=== PATIENT | female | born 1965 | race Asian ===

== ENCOUNTER 2022-01-14 09:10 | Inpatient (IN) | payer MEDICAID ==
[2022-01-14] VITALS (24 sets, daily range): BP systolic 61–105; BP diastolic 37–63
[~2022-01-14] VITALS: Ht 157.5 cm; Wt 65.0 kg
[2022-01-14 09:39] LABS: HEMATOCRIT 38.9 % (37.0-47.0); HEMOGLOBIN 13.3 g/dl (12.0-16.0); IMMATURE GRANULOCYTES 0.1 % (0.0-5.0); MEAN CELL VOLUME 83.3 fL CALC (80.0-100.0); MEAN CORPUSCULAR HGB 28.5 pG CALC (26.0-32.0); MEAN CORPUSCULAR HGB CONC 34.2 g/dL CAL (32.0-36.0); NEUT# 11.2 thou/uL (2.00-7.15); RED BLOOD COUNT 4.67 mill/uL (4.20-5.60); RED CELL DISTRI WIDTH 12.2 % (11.5-15.5)
[2022-01-14 09:58] LABS: ALBUMIN 4.8 g/dL (3.2-5.0); ALKALINE PHOSPHATASE 102 u/l (38-126); ANION GAP 14 (6-22 (CALC)); BILIRUBIN, TOTAL 1.3 mg/dL (0.0-1.4); BUN 22 mg/dL (7-17); BUN/CREATININE RATIO 37 (12-20 (CALC)); CARBON DIOXIDE 23 mmol/l (22-30); CHLORIDE 101 mmol/l (95-108); CPK 142 u/l (30-165); CREATININE 0.6 mg/dL (0.5-1.0); GFR FOR AFR.AMER. > 60 ML/MIN (>=60 (CALC)); GFR OTHER RACES > 60 ML/MIN (>=60 (CALC)); LIPASE 168 u/l (23-300); MAGNESIUM 2.4 mg/dL (1.6-2.3); POTASSIUM 4.2 mmol/l (3.5-5.1); SGOT/AST 49 u/l (14-36); SODIUM 134 mmol/l (137-146); TOTAL PROTEIN 8.4 g/dL (6.3-8.2)
[2022-01-15] VITALS (86 sets, daily range): BP systolic 88–139; BP diastolic 50–83
[2022-01-15 05:20] LABS: URINE BILIRUBIN - DIPSTICK NEGATIVE (NEGATIVE); URINE BLOOD DIPSTICK MODERATE (NEGATIVE); URINE COLOR YELLOW; URINE GLUCOSE - DIPSTICK NEGATIVE (NEGATIVE); URINE KETONE TRACE mg/dL (NEGATIVE); URINE LEUK ESTERASE NEGATIVE (NEGATIVE); URINE PH 5.5 (4.5-8.0); URINE PROTEIN - DIPSTICK NEGATIVE (NEG-TRACE); URINE SPECIFIC GRAVITY >=1.030; URINE UROBILINOGEN - DIPSTICK 0.2 E.U./dL (0.2)
[2022-01-15 05:22] LABS: URINE NITRITE - DIPSTICK NEGATIVE (Negative)
[2022-01-15 05:34] LABS: URINE CALCIUM OXALATE CRYSTALS FEW lpf
[2022-01-15 05:35] LABS: URINE SQUAMOUS EPITHELIAL CELL FEW EPI/hpf (0-FEW)
[2022-01-15 05:51] LABS: HEMATOCRIT 35.9 % (37.0-47.0); HEMOGLOBIN 12.2 g/dl (12.0-16.0); IMMATURE GRANULOCYTES 0.2 % (0.0-5.0); MEAN CELL VOLUME 85.5 fL CALC (80.0-100.0); NEUT# 4.63 thou/uL (2.00-7.15); RED BLOOD COUNT 4.2 mill/uL (4.20-5.60); RED CELL DISTRI WIDTH 12.8 % (11.5-15.5)
[2022-01-15 06:08] LABS: ANION GAP 9 (6-22 (CALC)); BUN 26 mg/dL (7-17); BUN/CREATININE RATIO 38 (12-20 (CALC)); CARBON DIOXIDE 19 mmol/l (22-30); CHLORIDE 110 mmol/l (95-108); CREATININE 0.7 mg/dL (0.5-1.0); GFR FOR AFR.AMER. > 60 ML/MIN (>=60 (CALC)); GFR OTHER RACES > 60 ML/MIN (>=60 (CALC)); POTASSIUM 4.1 mmol/l (3.5-5.1); SODIUM 134 mmol/l (137-146)
[2022-01-16] VITALS (104 sets, daily range): BP systolic 83–116; BP diastolic 46–69
[2022-01-16 05:46] LABS: HEMATOCRIT 33.2 % (37.0-47.0); HEMOGLOBIN 10.9 g/dl (12.0-16.0); IMMATURE GRANULOCYTES 0.3 % (0.0-5.0); MEAN CORPUSCULAR HGB 28.2 pG CALC (26.0-32.0); MEAN CORPUSCULAR HGB CONC 32.8 g/dL CAL (32.0-36.0); NEUT# 5.23 thou/uL (2.00-7.15); RED BLOOD COUNT 3.86 mill/uL (4.20-5.60); RED CELL DISTRI WIDTH 13.1 % (11.5-15.5)
[2022-01-16 06:19] LABS: ALKALINE PHOSPHATASE 88 u/l (38-126); ANION GAP 8 (6-22 (CALC)); BILIRUBIN, TOTAL 1.2 mg/dL (0.0-1.4); BUN 16 mg/dL (7-17); BUN/CREATININE RATIO 22 (12-20 (CALC)); CARBON DIOXIDE 20 mmol/l (22-30); CHLORIDE 111 mmol/l (95-108); CREATININE 0.7 mg/dL (0.5-1.0); GFR FOR AFR.AMER. > 60 ML/MIN (>=60 (CALC)); GFR OTHER RACES > 60 ML/MIN (>=60 (CALC)); POTASSIUM 3.9 mmol/l (3.5-5.1); SGOT/AST 32 u/l (14-36); SODIUM 135 mmol/l (137-146)
[2022-01-16 06:21] LABS: ALBUMIN 2.4 g/dL (3.2-5.0)
[2022-01-17] VITALS (23 sets, daily range): BP systolic 84–124; BP diastolic 51–68
[2022-01-17 05:33] LABS: HEMOGLOBIN 9.6 g/dl (12.0-16.0); MEAN CELL VOLUME 86.3 fL CALC (80.0-100.0); MEAN CORPUSCULAR HGB 28.6 pG CALC (26.0-32.0); MEAN CORPUSCULAR HGB CONC 33.1 g/dL CAL (32.0-36.0); RED BLOOD COUNT 3.36 mill/uL (4.20-5.60); RED CELL DISTRI WIDTH 12.9 % (11.5-15.5)
[2022-01-17 05:54] LABS: ALKALINE PHOSPHATASE 65 u/l (38-126); ANION GAP 10 (6-22 (CALC)); BUN 13 mg/dL (7-17); BUN/CREATININE RATIO 20 (12-20 (CALC)); CARBON DIOXIDE 17 mmol/l (22-30); CHLORIDE 112 mmol/l (95-108); CREATININE 0.7 mg/dL (0.5-1.0); GFR FOR AFR.AMER. > 60 ML/MIN (>=60 (CALC)); GFR OTHER RACES > 60 ML/MIN (>=60 (CALC)); MAGNESIUM 1.9 mg/dL (1.6-2.3); POTASSIUM 3.4 mmol/l (3.5-5.1); SGOT/AST 27 u/l (14-36); SODIUM 136 mmol/l (137-146); TOTAL PROTEIN 4.2 g/dL (6.3-8.2)
[2022-01-17 06:07] LABS: BILIRUBIN, TOTAL 0.7 mg/dL (0.0-1.4)
[2022-01-18] VITALS (8 sets, daily range): BP systolic 105–126; BP diastolic 59–75
[2022-01-18 06:28] LABS: HEMATOCRIT 30.7 % (37.0-47.0); HEMOGLOBIN 10.3 g/dl (12.0-16.0); MEAN CELL VOLUME 85.5 fL CALC (80.0-100.0); MEAN CORPUSCULAR HGB 28.7 pG CALC (26.0-32.0); MEAN CORPUSCULAR HGB CONC 33.6 g/dL CAL (32.0-36.0); RED BLOOD COUNT 3.59 mill/uL (4.20-5.60); RED CELL DISTRI WIDTH 12.9 % (11.5-15.5)
[2022-01-18 06:55] LABS: BUN 11 mg/dL (7-17); BUN/CREATININE RATIO 17 (12-20 (CALC)); CHLORIDE 114 mmol/l (95-108); CREATININE 0.7 mg/dL (0.5-1.0); GFR FOR AFR.AMER. > 60 ML/MIN (>=60 (CALC)); GFR OTHER RACES > 60 ML/MIN (>=60 (CALC)); MAGNESIUM 1.7 mg/dL (1.6-2.3); POTASSIUM 3.4 mmol/l (3.5-5.1); SODIUM 136 mmol/l (137-146)
[2022-01-18 06:56] LABS: ANION GAP 12 (6-22 (CALC)); CARBON DIOXIDE 13 mmol/l (22-30)
[2022-01-19] VITALS (13 sets, daily range): BP systolic 96–151; BP diastolic 53–77
[2022-01-19 04:43] LABS: HEMATOCRIT 26.5 % (37.0-47.0); HEMOGLOBIN 9.4 g/dl (12.0-16.0); MEAN CELL VOLUME 80.8 fL CALC (80.0-100.0); MEAN CORPUSCULAR HGB 28.7 pG CALC (26.0-32.0); MEAN CORPUSCULAR HGB CONC 35.5 g/dL CAL (32.0-36.0); RED BLOOD COUNT 3.28 mill/uL (4.20-5.60); RED CELL DISTRI WIDTH 12.6 % (11.5-15.5)
[2022-01-19 09:48] LABS: ALBUMIN 2.2 g/dL (3.2-5.0); ALKALINE PHOSPHATASE 48 u/l (38-126); BUN 5 mg/dL (7-17); BUN/CREATININE RATIO 8 (12-20 (CALC)); CHLORIDE 107 mmol/l (95-108); CREATININE 0.6 mg/dL (0.5-1.0); GFR FOR AFR.AMER. > 60 ML/MIN (>=60 (CALC)); GFR OTHER RACES > 60 ML/MIN (>=60 (CALC)); MAGNESIUM 1.5 mg/dL (1.6-2.3); POTASSIUM 3.4 mmol/l (3.5-5.1); SGOT/AST 28 u/l (14-36); SODIUM 132 mmol/l (137-146); TOTAL PROTEIN 4.8 g/dL (6.3-8.2)
[2022-01-19 09:49] LABS: ANION GAP 6 (6-22 (CALC)); BILIRUBIN, TOTAL 0.4 mg/dL (0.0-1.4); CARBON DIOXIDE 22 mmol/l (22-30)
[2022-01-19 12:33] LABS: C. DIFFICILE TOXIN A&B NEGATIVE (NEGATIVE)
[2022-01-20] VITALS (7 sets, daily range): BP systolic 105–124; BP diastolic 58–70
[2022-01-20 04:38] LABS: HEMOGLOBIN 10.3 g/dl (12.0-16.0); IMMATURE GRANULOCYTES 1.5 % (0.0-5.0); MEAN CELL VOLUME 83.8 fL CALC (80.0-100.0); MEAN CORPUSCULAR HGB 28.8 pG CALC (26.0-32.0); MEAN CORPUSCULAR HGB CONC 34.3 g/dL CAL (32.0-36.0); NEUT# 4.77 thou/uL (2.00-7.15); RED BLOOD COUNT 3.58 mill/uL (4.20-5.60); RED CELL DISTRI WIDTH 12.8 % (11.5-15.5)
[2022-01-20 04:54] LABS: ALKALINE PHOSPHATASE 63 u/l (38-126); BILIRUBIN, TOTAL 0.4 mg/dL (0.0-1.4); CHLORIDE 101 mmol/l (95-108); CREATININE 0.6 mg/dL (0.5-1.0); GFR FOR AFR.AMER. > 60 ML/MIN (>=60 (CALC)); GFR OTHER RACES > 60 ML/MIN (>=60 (CALC)); LIPASE 803 u/l (23-300); POTASSIUM 3.3 mmol/l (3.5-5.1); SGOT/AST 34 u/l (14-36); SODIUM 135 mmol/l (137-146); TOTAL PROTEIN 5.7 g/dL (6.3-8.2)
[2022-01-20 04:56] LABS: ALBUMIN 2.8 g/dL (3.2-5.0); ANION GAP 8 (6-22 (CALC)); CARBON DIOXIDE 29 mmol/l (22-30)
[2022-01-20 04:57] LABS: BUN 2 mg/dL (7-17); BUN/CREATININE RATIO 3 (12-20 (CALC))
[2022-01-20 05:38] LABS: C-REACTIVE PROTEIN 12.4 mg/dL (0-0.9)
[2022-01-21] VITALS (7 sets, daily range): BP systolic 108–133; BP diastolic 63–74
[2022-01-21 06:33] LABS: HEMATOCRIT 28.7 % (37.0-47.0); HEMOGLOBIN 9.6 g/dl (12.0-16.0); MEAN CELL VOLUME 83.9 fL CALC (80.0-100.0); MEAN CORPUSCULAR HGB 28.1 pG CALC (26.0-32.0); MEAN CORPUSCULAR HGB CONC 33.4 g/dL CAL (32.0-36.0); RED BLOOD COUNT 3.42 mill/uL (4.20-5.60); RED CELL DISTRI WIDTH 12.6 % (11.5-15.5)
[2022-01-21 06:48] LABS: ALBUMIN 2.4 g/dL (3.2-5.0); ALKALINE PHOSPHATASE 56 u/l (38-126); ANION GAP 9 (6-22 (CALC)); CARBON DIOXIDE 30 mmol/l (22-30); CHLORIDE 101 mmol/l (95-108); CREATININE 0.5 mg/dL (0.5-1.0); GFR FOR AFR.AMER. > 60 ML/MIN (>=60 (CALC)); GFR OTHER RACES > 60 ML/MIN (>=60 (CALC)); MAGNESIUM 1.9 mg/dL (1.6-2.3); POTASSIUM 3.4 mmol/l (3.5-5.1); SODIUM 136 mmol/l (137-146); TOTAL PROTEIN 4.8 g/dL (6.3-8.2)
[2022-01-21 07:00] LABS: BILIRUBIN, TOTAL 0.2 mg/dL (0.0-1.4); SGOT/AST 68 u/l (14-36)
[2022-01-21 07:01] LABS: BUN 2 mg/dL (7-17); BUN/CREATININE RATIO 4 (12-20 (CALC))
[2022-01-22 00:36] VITALS: BP 109/63
[2022-01-22 04:05] VITALS: BP 119/69
[2022-01-22 04:52] LABS: HEMATOCRIT 29.3 % (37.0-47.0); HEMOGLOBIN 9.8 g/dl (12.0-16.0); IMMATURE GRANULOCYTES 0.6 % (0.0-5.0); MEAN CORPUSCULAR HGB 28.1 pG CALC (26.0-32.0); MEAN CORPUSCULAR HGB CONC 33.4 g/dL CAL (32.0-36.0); NEUT# 4.16 thou/uL (2.00-7.15); RED BLOOD COUNT 3.49 mill/uL (4.20-5.60); RED CELL DISTRI WIDTH 12.6 % (11.5-15.5)
[2022-01-22 05:27] LABS: ALBUMIN 2.5 g/dL (3.2-5.0); ALKALINE PHOSPHATASE 52 u/l (38-126); AMYLASE 178 u/l (30-110); ANION GAP 11 (6-22 (CALC)); BUN 3 mg/dL (7-17); BUN/CREATININE RATIO 7 (12-20 (CALC)); CARBON DIOXIDE 27 mmol/l (22-30); CHLORIDE 103 mmol/l (95-108); CREATININE 0.5 mg/dL (0.5-1.0); GFR FOR AFR.AMER. > 60 ML/MIN (>=60 (CALC)); GFR OTHER RACES > 60 ML/MIN (>=60 (CALC)); LIPASE 1185 u/l (23-300); POTASSIUM 3.8 mmol/l (3.5-5.1); SGOT/AST 51 u/l (14-36); SODIUM 138 mmol/l (137-146)
[2022-01-22 05:41] LABS: BILIRUBIN, TOTAL 0.3 mg/dL (0.0-1.4)
[2022-01-22 07:32] VITALS: BP 115/67
[2022-01-22 11:08] VITALS: BP 94/52
[2022-01-22 16:50] VITALS: BP 101/55
[2022-01-22 19:42] VITALS: BP 114/60
[2022-01-23] VITALS (7 sets, daily range): BP systolic 92–117; BP diastolic 49–69
[2022-01-23 06:18] LABS: HEMATOCRIT 30.6 % (37.0-47.0); HEMOGLOBIN 10.5 g/dl (12.0-16.0); MEAN CELL VOLUME 83.4 fL CALC (80.0-100.0); MEAN CORPUSCULAR HGB 28.6 pG CALC (26.0-32.0); MEAN CORPUSCULAR HGB CONC 34.3 g/dL CAL (32.0-36.0); RED BLOOD COUNT 3.67 mill/uL (4.20-5.60); RED CELL DISTRI WIDTH 12.7 % (11.5-15.5)
[2022-01-23 06:26] LABS: ALBUMIN 2.7 g/dL (3.2-5.0); ALKALINE PHOSPHATASE 55 u/l (38-126); AMYLASE 156 u/l (30-110); ANION GAP 12 (6-22 (CALC)); BILIRUBIN, TOTAL 0.2 mg/dL (0.0-1.4); BUN 3 mg/dL (7-17); BUN/CREATININE RATIO 6 (12-20 (CALC)); CARBON DIOXIDE 24 mmol/l (22-30); CHLORIDE 99 mmol/l (95-108); CREATININE 0.5 mg/dL (0.5-1.0); GFR FOR AFR.AMER. > 60 ML/MIN (>=60 (CALC)); GFR OTHER RACES > 60 ML/MIN (>=60 (CALC)); LIPASE 968 u/l (23-300); MAGNESIUM 1.8 mg/dL (1.6-2.3); SGOT/AST 38 u/l (14-36); TOTAL PROTEIN 5.3 g/dL (6.3-8.2)
[2022-01-23 06:45] LABS: SODIUM 131 mmol/l (137-146)
[2022-01-24 00:14] VITALS: BP 105/58
[2022-01-24 03:59] VITALS: BP 99/51
[2022-01-24 05:41] LABS: HEMATOCRIT 31.4 % (37.0-47.0); HEMOGLOBIN 10.6 g/dl (12.0-16.0); MEAN CELL VOLUME 84.4 fL CALC (80.0-100.0); MEAN CORPUSCULAR HGB 28.5 pG CALC (26.0-32.0); MEAN CORPUSCULAR HGB CONC 33.8 g/dL CAL (32.0-36.0); RED BLOOD COUNT 3.72 mill/uL (4.20-5.60); RED CELL DISTRI WIDTH 12.9 % (11.5-15.5)
[2022-01-24 06:25] LABS: ALBUMIN 2.4 g/dL (3.2-5.0); ALKALINE PHOSPHATASE 51 u/l (38-126); ANION GAP 12 (6-22 (CALC)); BILIRUBIN, TOTAL 0.2 mg/dL (0.0-1.4); BUN 6 mg/dL (7-17); BUN/CREATININE RATIO 11 (12-20 (CALC)); CARBON DIOXIDE 24 mmol/l (22-30); CHLORIDE 101 mmol/l (95-108); CREATININE 0.6 mg/dL (0.5-1.0); GFR FOR AFR.AMER. > 60 ML/MIN (>=60 (CALC)); GFR OTHER RACES > 60 ML/MIN (>=60 (CALC)); LIPASE 1178 u/l (23-300); MAGNESIUM 1.9 mg/dL (1.6-2.3); POTASSIUM 3.8 mmol/l (3.5-5.1); SODIUM 133 mmol/l (137-146); TOTAL PROTEIN 4.8 g/dL (6.3-8.2)
[2022-01-24 06:27] LABS: SGOT/AST 82 u/l (14-36)
[2022-01-24 06:51] VITALS: BP 99/57
[2022-01-24 15:33] VITALS: BP 102/59
[2022-01-24 19:24] VITALS: BP 102/52
[2022-01-25] VITALS (9 sets, daily range): BP systolic 82–97; BP diastolic 40–59
[2022-01-25 05:00] LABS: ALBUMIN 2.2 g/dL (3.2-5.0); ALKALINE PHOSPHATASE 52 u/l (38-126); ANION GAP 10 (6-22 (CALC)); BUN 5 mg/dL (7-17); BUN/CREATININE RATIO 8 (12-20 (CALC)); CARBON DIOXIDE 24 mmol/l (22-30); CHLORIDE 104 mmol/l (95-108); CREATININE 0.5 mg/dL (0.5-1.0); GFR FOR AFR.AMER. > 60 ML/MIN (>=60 (CALC)); GFR OTHER RACES > 60 ML/MIN (>=60 (CALC)); LIPASE 1251 u/l (23-300); SGOT/AST 131 u/l (14-36); SODIUM 133 mmol/l (137-146); TOTAL PROTEIN 4.6 g/dL (6.3-8.2)
[2022-01-25 05:02] LABS: HEMATOCRIT 29.7 % (37.0-47.0); IMMATURE GRANULOCYTES 0.2 % (0.0-5.0); MEAN CELL VOLUME 84.9 fL CALC (80.0-100.0); MEAN CORPUSCULAR HGB 28.6 pG CALC (26.0-32.0); MEAN CORPUSCULAR HGB CONC 33.7 g/dL CAL (32.0-36.0); NEUT# 3.13 thou/uL (2.00-7.15); RED BLOOD COUNT 3.5 mill/uL (4.20-5.60)
[2022-01-26] VITALS (15 sets, daily range): BP systolic 84–118; BP diastolic 45–63
[2022-01-26 05:28] LABS: HEMATOCRIT 30.2 % (37.0-47.0); HEMOGLOBIN 9.9 g/dl (12.0-16.0); IMMATURE GRANULOCYTES 0.2 % (0.0-5.0); MEAN CELL VOLUME 85.6 fL CALC (80.0-100.0); MEAN CORPUSCULAR HGB CONC 32.8 g/dL CAL (32.0-36.0); NEUT# 3.24 thou/uL (2.00-7.15); RED BLOOD COUNT 3.53 mill/uL (4.20-5.60); RED CELL DISTRI WIDTH 13.1 % (11.5-15.5)
[2022-01-26 05:33] LABS: ALBUMIN 2.5 g/dL (3.2-5.0); ALKALINE PHOSPHATASE 56 u/l (38-126); BUN < 2 mg/dL (7-17); CHLORIDE 104 mmol/l (95-108); CREATININE 0.6 mg/dL (0.5-1.0); GFR FOR AFR.AMER. > 60 ML/MIN (>=60 (CALC)); GFR OTHER RACES > 60 ML/MIN (>=60 (CALC)); LIPASE 692 u/l (23-300); POTASSIUM 3.9 mmol/l (3.5-5.1); SGOT/AST 88 u/l (14-36); SODIUM 137 mmol/l (137-146); TOTAL PROTEIN 5.3 g/dL (6.3-8.2)
[2022-01-26 05:57] LABS: ANION GAP 8 (6-22 (CALC)); BILIRUBIN, TOTAL 0.2 mg/dL (0.0-1.4); CARBON DIOXIDE 29 mmol/l (22-30)
[2022-01-27] VITALS (20 sets, daily range): BP systolic 77–109; BP diastolic 41–64
[2022-01-27 04:50] LABS: HEMATOCRIT 27.4 % (37.0-47.0); HEMOGLOBIN 9.2 g/dl (12.0-16.0); IMMATURE GRANULOCYTES 0.7 % (0.0-5.0); MEAN CELL VOLUME 85.4 fL CALC (80.0-100.0); MEAN CORPUSCULAR HGB 28.7 pG CALC (26.0-32.0); MEAN CORPUSCULAR HGB CONC 33.6 g/dL CAL (32.0-36.0); NEUT# 3.23 thou/uL (2.00-7.15); RED BLOOD COUNT 3.21 mill/uL (4.20-5.60); RED CELL DISTRI WIDTH 13.1 % (11.5-15.5)
[2022-01-27 05:09] LABS: ANION GAP 7 (6-22 (CALC)); BUN < 2 mg/dL (7-17); CARBON DIOXIDE 29 mmol/l (22-30); CHLORIDE 102 mmol/l (95-108); CREATININE 0.5 mg/dL (0.5-1.0); GFR FOR AFR.AMER. > 60 ML/MIN (>=60 (CALC)); GFR OTHER RACES > 60 ML/MIN (>=60 (CALC)); POTASSIUM 3.8 mmol/l (3.5-5.1); SODIUM 134 mmol/l (137-146)
[2022-01-28] VITALS (7 sets, daily range): BP systolic 93–106; BP diastolic 53–62
[2022-01-28 06:42] LABS: HEMATOCRIT 27.2 % (37.0-47.0); HEMOGLOBIN 8.9 g/dl (12.0-16.0); IMMATURE GRANULOCYTES 0.5 % (0.0-5.0); MEAN CELL VOLUME 86.3 fL CALC (80.0-100.0); MEAN CORPUSCULAR HGB 28.3 pG CALC (26.0-32.0); MEAN CORPUSCULAR HGB CONC 32.7 g/dL CAL (32.0-36.0); NEUT# 2.42 thou/uL (2.00-7.15); RED BLOOD COUNT 3.15 mill/uL (4.20-5.60); RED CELL DISTRI WIDTH 13.2 % (11.5-15.5)
[2022-01-28 06:57] LABS: ALBUMIN 2.2 g/dL (3.2-5.0); ALKALINE PHOSPHATASE 52 u/l (38-126); ANION GAP 6 (6-22 (CALC)); BILIRUBIN, TOTAL 0.2 mg/dL (0.0-1.4); BUN < 2 mg/dL (7-17); CARBON DIOXIDE 27 mmol/l (22-30); CHLORIDE 106 mmol/l (95-108); CREATININE 0.5 mg/dL (0.5-1.0); GFR FOR AFR.AMER. > 60 ML/MIN (>=60 (CALC)); GFR OTHER RACES > 60 ML/MIN (>=60 (CALC)); LIPASE 528 u/l (23-300); POTASSIUM 3.9 mmol/l (3.5-5.1); SGOT/AST 45 u/l (14-36); SODIUM 135 mmol/l (137-146); TOTAL PROTEIN 4.9 g/dL (6.3-8.2)
[2022-01-29 00:15] VITALS: BP 117/68
[2022-01-29 03:59] VITALS: BP 102/57
[2022-01-29 05:39] LABS: HEMATOCRIT 25.7 % (37.0-47.0); HEMOGLOBIN 8.4 g/dl (12.0-16.0); IMMATURE GRANULOCYTES 0.6 % (0.0-5.0); MEAN CELL VOLUME 86.5 fL CALC (80.0-100.0); MEAN CORPUSCULAR HGB 28.3 pG CALC (26.0-32.0); MEAN CORPUSCULAR HGB CONC 32.7 g/dL CAL (32.0-36.0); NEUT# 1.74 thou/uL (2.00-7.15); RED BLOOD COUNT 2.97 mill/uL (4.20-5.60); RED CELL DISTRI WIDTH 13.2 % (11.5-15.5)
[2022-01-29 05:58] LABS: ANION GAP 8 (6-22 (CALC)); BUN < 2 mg/dL (7-17); CARBON DIOXIDE 29 mmol/l (22-30); CHLORIDE 103 mmol/l (95-108); CREATININE 0.5 mg/dL (0.5-1.0); GFR FOR AFR.AMER. > 60 ML/MIN (>=60 (CALC)); GFR OTHER RACES > 60 ML/MIN (>=60 (CALC)); MAGNESIUM 1.8 mg/dL (1.6-2.3); POTASSIUM 3.7 mmol/l (3.5-5.1); SODIUM 136 mmol/l (137-146)
[2022-01-29 06:02] VITALS: BP 112/66
[2022-01-29 10:22] VITALS: BP 104/61
[2022-01-29 16:02] VITALS: BP 91/58
[2022-01-29 19:09] VITALS: BP 96/53
[2022-01-30] VITALS (8 sets, daily range): BP systolic 90–115; BP diastolic 48–66
[2022-01-30 05:07] LABS: HEMOGLOBIN 8.3 g/dl (12.0-16.0); MEAN CELL VOLUME 86.5 fL CALC (80.0-100.0); MEAN CORPUSCULAR HGB 28.7 pG CALC (26.0-32.0); MEAN CORPUSCULAR HGB CONC 33.2 g/dL CAL (32.0-36.0); RED BLOOD COUNT 2.89 mill/uL (4.20-5.60); RED CELL DISTRI WIDTH 13.1 % (11.5-15.5)
[2022-01-30 05:22] LABS: ALBUMIN 2.4 g/dL (3.2-5.0); ALKALINE PHOSPHATASE 59 u/l (38-126); ANION GAP 7 (6-22 (CALC)); BILIRUBIN, TOTAL 0.2 mg/dL (0.0-1.4); BUN < 2 mg/dL (7-17); CARBON DIOXIDE 28 mmol/l (22-30); CHLORIDE 103 mmol/l (95-108); CREATININE 0.5 mg/dL (0.5-1.0); GFR FOR AFR.AMER. > 60 ML/MIN (>=60 (CALC)); GFR OTHER RACES > 60 ML/MIN (>=60 (CALC)); POTASSIUM 3.7 mmol/l (3.5-5.1); SGOT/AST 38 u/l (14-36); SODIUM 135 mmol/l (137-146); TOTAL PROTEIN 5.2 g/dL (6.3-8.2)
[2022-01-31] VITALS (10 sets, daily range): BP systolic 87–104; BP diastolic 51–62
[2022-01-31 05:15] LABS: HEMATOCRIT 25.5 % (37.0-47.0); HEMOGLOBIN 8.2 g/dl (12.0-16.0); MEAN CELL VOLUME 85.9 fL CALC (80.0-100.0); MEAN CORPUSCULAR HGB 27.6 pG CALC (26.0-32.0); MEAN CORPUSCULAR HGB CONC 32.2 g/dL CAL (32.0-36.0); RED BLOOD COUNT 2.97 mill/uL (4.20-5.60)
[2022-01-31 05:37] LABS: ANION GAP 8 (6-22 (CALC)); BUN < 2 mg/dL (7-17); CARBON DIOXIDE 29 mmol/l (22-30); CHLORIDE 101 mmol/l (95-108); CREATININE 0.5 mg/dL (0.5-1.0); GFR FOR AFR.AMER. > 60 ML/MIN (>=60 (CALC)); GFR OTHER RACES > 60 ML/MIN (>=60 (CALC)); POTASSIUM 3.7 mmol/l (3.5-5.1); SODIUM 134 mmol/l (137-146)
[2022-02-01 00:11] VITALS: BP 87/52
[2022-02-01 04:03] VITALS: BP 90/54
[2022-02-01 06:15] VITALS: BP 88/51
[2022-02-01 06:15] LABS: HEMATOCRIT 28.1 % (37.0-47.0); HEMOGLOBIN 9.4 g/dl (12.0-16.0); MEAN CELL VOLUME 86.2 fL CALC (80.0-100.0); MEAN CORPUSCULAR HGB 28.8 pG CALC (26.0-32.0); MEAN CORPUSCULAR HGB CONC 33.5 g/dL CAL (32.0-36.0); RED BLOOD COUNT 3.26 mill/uL (4.20-5.60); RED CELL DISTRI WIDTH 13.1 % (11.5-15.5)
[2022-02-01 06:31] LABS: ALKALINE PHOSPHATASE 73 u/l (38-126); ANION GAP 9 (6-22 (CALC)); BUN 3 mg/dL (7-17); BUN/CREATININE RATIO 6 (12-20 (CALC)); CARBON DIOXIDE 31 mmol/l (22-30); CHLORIDE 98 mmol/l (95-108); CREATININE 0.5 mg/dL (0.5-1.0); GFR FOR AFR.AMER. > 60 ML/MIN (>=60 (CALC)); GFR OTHER RACES > 60 ML/MIN (>=60 (CALC)); LIPASE 559 u/l (23-300); POTASSIUM 3.9 mmol/l (3.5-5.1); SGOT/AST 31 u/l (14-36); SODIUM 134 mmol/l (137-146)
[2022-02-01 06:35] LABS: ALBUMIN 2.9 g/dL (3.2-5.0); BILIRUBIN, TOTAL 0.3 mg/dL (0.0-1.4)
[2022-02-01] MEDS ORDERED: ONDANSETRON4 MG PO (10:31)
[2022-02-01] MEDS ORDERED: LORTAB 5/3255 MG PO (10:31)
[2022-02-01 10:41] VITALS: BP 92/47
== END 2022-02-01 12:40 | disposition home or self-care (01) | DRG 329 ==
LOC: ED 09:10 → MS2 13:18 → ICU 19:18 → MS2 01-15 06:34 → ICU 01-15 06:34 → MS2 01-16 22:00
PROVIDERS: Internal Medicine; Surgery; ADMIT Internal Medicine; ATTEND Internal Medicine
PROC: 3E033XZ Introduction of Vasopressor into Peripheral Vein, Percutaneous Approach (ICD-10-PCS; 2022-01-14)
PROC: 0DBN8ZX Excision of Sigmoid Colon, Via Natural or Artificial Opening Endoscopic, Diagnostic (ICD-10-PCS; 2022-01-19)
PROC: 0DBM8ZX Excision of Descending Colon, Via Natural or Artificial Opening Endoscopic, Diagnostic (ICD-10-PCS; 2022-01-19)
PROC: 0DBL0ZZ Excision of Transverse Colon, Open Approach (ICD-10-PCS; principal; 2022-01-25)
PROC: 0DTG0ZZ Resection of Left Large Intestine, Open Approach (ICD-10-PCS; 2022-01-25)
DX: K55.1 Chronic vascular disorders of intestine (principal); J18.9 Pneumonia, unspecified organism; K85.90 Acute pancreatitis without necrosis or infection, unspecified; I95.9 Hypotension, unspecified; E87.6 Hypokalemia
CPT/HCPCS: J0131; J1650; J3475; Q3014; Q9967